=== PATIENT | female | born 1985 | race African-American/Black ===

== ENCOUNTER → 2022-01-31 09:39 | Outpatient (BNVA) | payer OTHER, SELFPAY | PROVIDERS: PCP Internal Medicine; Visit Provider Student in an Organized Health Care Education/Training Program | DX: M24.9 Joint derangement, unspecified (principal); M54.2 Cervicalgia; M16.0 Bilateral primary osteoarthritis of hip | CPT/HCPCS: 99202 ==

== ENCOUNTER 2022-01-31 10:31 | Outpatient (REF) | payer OTHER, SELFPAY ==
--- NOTE | ~2022-01-31 | XR_ITS ---
EXAMINATION: XR HIPS, BILATERAL XR CERVICAL SPINE CLINICAL INFORMATION: Neck pain and hip pain. COMPARISON: None. TECHNIQUE: 3 views cervical spine and AP and frog-leg views bilateral hips. FINDINGS: Cervical Spine: There is mild straightening of cervical lordosis. The vertebral heights and alignment is normal. No visible acute fracture, dislocation or subluxation seen. There is bilateral C7 cervical ribs. The prevertebral soft tissues are normal. Right Hip: There is no visible acute fracture, dislocation or subluxation seen. No bony erosive changes. The soft tissues are normal. Left Hip: There is no visible acute fracture, dislocation or subluxation. The soft tissues are normal. XR/XR cervical spine 3V IMPRESSION: Bilateral C7 cervical ribs. Mild straightening of cervical lordosis likely spasm or positional. No acute fracture. Unremarkable bilateral hip exam.
--- NOTE | ~2022-01-31 | XR_ITS ---
EXAMINATION: XR HIPS, BILATERAL XR CERVICAL SPINE CLINICAL INFORMATION: Neck pain and hip pain. COMPARISON: None. TECHNIQUE: 3 views cervical spine and AP and frog-leg views bilateral hips. FINDINGS: Cervical Spine: There is mild straightening of cervical lordosis. The vertebral heights and alignment is normal. No visible acute fracture, dislocation or subluxation seen. There is bilateral C7 cervical ribs. The prevertebral soft tissues are normal. Right Hip: There is no visible acute fracture, dislocation or subluxation seen. No bony erosive changes. The soft tissues are normal. Left Hip: There is no visible acute fracture, dislocation or subluxation. The soft tissues are normal. XR/XR hips DIMITRI min 3V IMPRESSION: Bilateral C7 cervical ribs. Mild straightening of cervical lordosis likely spasm or positional. No acute fracture. Unremarkable bilateral hip exam.
== END 2022-01-31 10:32 | disposition home or self-care (01) ==
LOC: HO.XRAY 10:31
PROVIDERS: PCP Internal Medicine; Visit Provider Student in an Organized Health Care Education/Training Program
DX: M16.0 Bilateral primary osteoarthritis of hip (principal); M54.2 Cervicalgia
CPT/HCPCS: 72040; 73522